=== PATIENT | female | born 1965 | race Caucasian/White ===

== ENCOUNTER 2019-07-23 15:58 | Emergency (ER) | payer SELFPAY ==
[~2019-07-23] VITALS: Ht 154.9 cm; Wt 116.8 kg
[2019-07-23] MEDS ORDERED: SILVER NITRATE STICK TP ONE (16:16)
[2019-07-23] MEDS ORDERED: LIDOCAINE-MPF 1%, 2ML ONE (16:16)
[2019-07-23] MEDS ORDERED: PHENYLEPHRINE NASAL 1%, 15ML SPRAY ONE (16:16)
[2019-07-23 16:52] VITALS: BP 113/72
[2019-07-23] MEDS ORDERED: IBUP-1623 PO (16:52)
--- NOTE | 2019-07-23 17:05 | NUR ---
PT SITTING IN CHAIR WATCHING TV, TISSUES IN LAP, TRASHCAN AT SIDE.
[2019-07-23] MEDS ORDERED: NEOSPORIN OINT. PKT 1 PACKET ONE (17:11)
--- NOTE | 2019-07-23 17:14 | NUR ---
DR. TERE Ballard IN ROOM PACKING PT LEFT NOSTRIL.
--- NOTE | 2019-07-23 17:16 | NUR ---
PT DID NOT TOLERATE NASAL PACKING. DR. BARRIOS DID NOT COMPLETE PACKING, REFERAL TO BE GIVEN TO ENT AT PT REQUEST.
--- NOTE | 2019-07-23 17:37 | NUR ---
DISCHARGE UP, PT ASKED TO TRY PACKING AGAIN BECAUSE NOSE STARTED BLEEDING AGAIN. FRIEND AT BEDSIDE, NO SIGNS OF DISTRESS.
== END 2019-07-23 17:55 ==
LOC: ED 17:45
DX: R04.0 Epistaxis (principal); R51 Headache; F17.200 Nicotine dependence, unspecified, uncomplicated
CPT/HCPCS: 30905; 99284